=== PATIENT | female | born 1945 | race Caucasian/White ===

== ENCOUNTER 2017-12-17 19:43 | Emergency (ER) | payer OTHER, MEDICARE ==
[~2017-12-17] VITALS: Ht 170.2 cm; Wt 52.2 kg
[~2017-12-17 19:43] MED LIST: DOXYCYCLINE HY100 M4 PO; TRIAMCINOLONE A15 G1 TOP
--- NOTE | 2017-12-17 21:21 | ED GENERAL ADULT ---
History of Present Illness General Chief Complaint: General Adult Stated Complaint: ?TICK ON BACK OF NECK Source: patient, family, old records Exam Limitations: no limitations Vital Signs & Intake/Output Vital Signs & Intake/Output Vital Signs Date Time Temp Pulse Resp B/P B/P Pulse O2 O2 Flow FiO2 Mean Ox Delivery Rate 12/17 2121 96.9 71 18 118/70 97 Room Air 12/17 1956 97.1 76 16 116/73 99 Room Air Allergies Coded Allergies: codeine (Intermediate, NIGHTMARES 12/17/17) Reconcile Medications Doxycycline Hyclate 100 MG TABLET 1 TAB PO BID SWOLLEN THUMB Triamcinolone Acetonide 0.1 % CREAM..G. 0.1 % TOP BID RASH Triage Note: PT NOTED TO HAVE TICK ON THE BACK OF HER NECK. Triage Nurses Notes Reviewed? yes HPI: Patient noticed a tick on the back of her neck. Patient presents for evaluation. Patient states that she was working in the yard this morning. She denies any fevers or chills. There is no pain. Past History Travel History Traveled to [place] past 21 day No Medical History Any Pertinent Medical History? see below for history EENT: HYPOTHYRODISM Cardiovascular: HIGH CHOLESTEROL Surgical History Surgical History: non-contributory Psychosocial History What is your primary language Macedonian Tobacco Use: Never used ETOH Use: denies use Illicit Drug Use: denies illicit drug use Family History Hx Contributory? No Review of Systems Review of Systems Constitutional: Reports: no symptoms. Respiratory: Reports: no symptoms. Cardiovascular: Reports: no symptoms. GI: Reports: no symptoms. Musculoskeletal: Reports: no symptoms. Neurological/Psychological: Reports: no symptoms. Immunologic/Allergic: Reports: no symptoms. Physical Exam Physical Exam General Appearance: well developed/nourished, alert, awake, anxious Eyes: Bilateral: PERRL, EOMI. Neck: TICK AND BACK AND NECK Respiratory: normal breath sounds, chest non-tender, no respiratory distress, lungs clear Cardiovascular: regular rate/rhythm, normal peripheral pulses Neurologic/Psych: no motor/sensory deficits, awake, alert, oriented x 3, normal gait, normal mood/affect Core Measures ACS in differential dx? No CVA/TIA Diagnosis: No Sepsis Present: No Sepsis Focused Exam Completed? No Progress Differential Diagnoses I considered the following diagnoses in my evaluation of the patient: [tick bite ] Plan of Care: Current Medications Sig/Jessica Start time Last Medication Dose Stop Time Status Admin Doxycycline Hyclate 200 MG ONCE ONE 12/17 2129 UNVr (Vibramycin) 12/17 2130 Initial ED EKG: none Departure Departure Disposition: HOME OR SELF CARE Condition: Stable Clinical Impression Primary Impression: Tick bite Referrals: Nemo IGLESIAS,Thad Frausto (PCP/Family) Additional Instructions: RETURN IF SYMPTOMS WORSEN OR FOR ANY CONCERNS Departure Forms: Customer Survey General Discharge Information Critical Care Note Critical Care Note Critical Care Time: non-applicable
[2017-12-17 21:22] VITALS: BP 118/70
== END 2017-12-17 21:21 ==
LOC: ERH 19:43
DX: S10.96XA Insect bite of unspecified part of neck, initial encounter (principal); W57.XXXA Bitten or stung by nonvenomous insect and other nonvenomous arthropods, initial encounter; Y92.017 Garden or yard in single-family (private) house as the place of occurrence of the external cause; Y93.9 Activity, unspecified